=== PATIENT | female | born 2000 | race Caucasian/White ===

== ENCOUNTER 2025-07-09 07:43 | Inpatient (IN) | payer OTHER ==
[2025-07-09 08:58] LABS: Hematocrit 39.9 % (34.9-44.5); Hemoglobin 13.5 g/dL (12.0-15.5); Mean Corpuscular Hemoglobin 31.3 pg (27.0-33.0); Mean Corpuscular Volume 92.4 fL (81.6-98.3); Platelet Count 222 10x3/uL (150-450); Red Blood Cell (RBC) Count 4.32 10x6/uL (3.90-5.03); White Blood Cell (WBC) Count 14.76 10x3/uL (3.5-10.5)
[2025-07-09 09:23] VITALS: BMI 31.6
[2025-07-09 09:33] LABS: HIV (1/2) Antibody/Antigen Non-Reactive (NonReactive); HIV 1/2 INDEX 0.11 S/CO (<1.00); Hep B Surf Ag - L&D Non-Reactive S/CO (NonReactive)
[2025-07-09 09:34] LABS: Syphilis Antibody Index 0.07 S/CO (<1.00 Non-Reactive)
[2025-07-09] MEDS: Oxytocin 30 units/NS 500 ML 500 ML ONE (10:23)
[2025-07-09] MEDS: Lidocaine 1% (PF) 30 ML VIAL ONE (10:23)
[2025-07-09] MEDS ORDERED: hydrALAZINE 20 MG/ML VIAL SLOW IVP PRN ×2 (10:28→12:28)
[2025-07-09] MEDS ORDERED: HYDROcodone/Acetaminophen 5/325 mg Tablet PO PRN ×2 (10:28→12:28)
[2025-07-09] MEDS ORDERED: Ondansetron PF 4 MG/2 ML Vial IVP PRN (10:28)
[2025-07-09] MEDS ORDERED: Lidocaine 1% (PF) 30 ML VIAL SC PRN (10:28)
[2025-07-09] MEDS ORDERED: Ibuprofen 800 MG TAB PO PRN (10:28)
[2025-07-09] MEDS ORDERED: Oxytocin 30 units/NS 500 ML 500 ML IV SCH (10:30)
[2025-07-09] MEDS ORDERED: Milk Of Magnesia 30 ML UDCUP PO PRN (12:28)
[2025-07-09] MEDS ORDERED: Lanolin Ointment 7 GM TUBE TOP PRN (12:28)
[2025-07-09] MEDS ORDERED: Bisacodyl 10 MG SUPP PR PRN (12:28)
[2025-07-09] MEDS: Ibuprofen 800 MG TAB PO SCH (13:59)
[2025-07-09] MEDS: Benzocaine-Menthol 82.5 ML CAN TOP PRN (14:00)
[2025-07-09] MEDS: Ferrous Sulfate 325 MG TAB PO SCH (16:33)
[2025-07-10 04:09] VITALS: TEMP 97.8
[2025-07-10 08:26] VITALS: BP 114/71
== END 2025-07-10 15:00 | disposition home or self-care (01) | DRG 807 ==
LOC: CSHLD/OP 07:43 → CSHLD 10:10 → CSHPP 12:50
PROVIDERS: ADMIT Family Medicine; ATTEND Family Medicine
PROC: 10E0XZZ Delivery of Products of Conception, External Approach (ICD-10-PCS; principal; 2025-07-09)
PROC: 0KQM0ZZ Repair Perineum Muscle, Open Approach (ICD-10-PCS; 2025-07-09)
DX: O42.02 Full-term premature rupture of membranes, onset of labor within 24 hours of rupture (principal); Z37.0 Single live birth; Z3A.40 40 weeks gestation of pregnancy; O48.0 Post-term pregnancy; Z98.890 Other specified postprocedural states
CPT/HCPCS: 36415; 85027; 86780; 86850; 86900; 86901; 87340; 87389; 99285; J2590